=== PATIENT | female | born 1990 | race Caucasian/White ===

== ENCOUNTER 2017-09-04 06:19 | Inpatient (IN) | payer OTHER ==
[2017-09-04] MEDS ORDERED: NACL 0.9% 3 ML SYG IV (07:00)
[2017-09-04] MEDS ORDERED: BISACODYL (EC) 5 MG TAB PO (07:00)
[2017-09-04] MEDS ORDERED: ACETAMINOPHEN 325 MG TAB PO (07:00)
[2017-09-04] MEDS ORDERED: DOCUSATE SODIUM 100 MG CAP PO (07:00)
[2017-09-04 08:30] LABS: ADD MAN DIFF? NO
[2017-09-04 08:34] LABS: BASOPHIL # 0.1 10^3/ul (0.0-0.1); BASOPHILS % 0.6 % (0.0-2.0); EOSINOPHILS # 0.4 10^3/ul (0.0-0.5); EOSINOPHILS % 4.4 % (0.0-7.0); HEMATOCRIT 36.7 % (37.0-47.0); HEMOGLOBIN 12.5 g/dl (12.0-16.0); LYMPHOCYTES # 2.9 10^3/ul (0.8-2.9); LYMPHOCYTES % 32.1 % (15.0-51.0); MEAN CORPUSCULAR HEMOGLOBIN 29.9 pg (29.0-33.0); MEAN CORPUSCULAR HGB CONC 34.1 g/dl (32.0-37.0); MEAN CORPUSCULAR VOLUME 87.8 fl (82.0-101.0); MEAN PLATELET VOLUME 11.4 fl (7.4-10.4); MONOCYTE # 0.4 10^3/ul (0.3-0.9); MONOCYTES % 4.9 % (0.0-11.0); NEUTROPHIL # 5.2 10^3/ul (1.6-7.5); NEUTROPHILS % 57.8 % (39.0-77.0); PLATELET COUNT 221 10^3/UL (140-415); RED BLOOD COUNT 4.18 10^6/ul (4.20-5.40); RED CELL DISTRIBUTION WIDTH 12.1 % (11.5-14.5)
[2017-09-04 09:13] LABS: ALANINE AMINOTRANSFERASE 26 IU/L (13-69); ALBUMIN 3.4 g/dl (3.3-4.9); ALBUMIN/GLOBULIN RATIO 1.03; ALKALINE PHOSPHATASE 92 IU/L (42-121); ANION GAP 15 (8-16); ASPARTATE AMINO TRANSFERASE 27 IU/L (15-46); BILIRUBIN,INDIRECT 0.1 mg/dl (0-1.1); BILIRUBIN,TOTAL 0.1 mg/dl (0.2-1.3); BLOOD UREA NITROGEN 9 mg/dl (7-20); CALCIUM 8.5 mg/dl (8.4-10.2); CARBON DIOXIDE 26 mmol/L (21-31); CHLORIDE 108 mmol/L (97-110); CHOL/HDL RATIO 3.3 RATIO; CHOLESTEROL 151 mg/dl (100-200); CREATININE 0.67 mg/dl (0.44-1.00); GLUCOSE 92 mg/dl (70-220); HDL CHOLESTEROL 45 mg/dl (33-83); LDL CHOLESTEROL,CALCULATED 83 mg/dl; POTASSIUM 4.7 mmol/L (3.5-5.1); SODIUM 144 mmol/L (135-144); TOTAL PROTEIN 6.7 g/dl (6.1-8.1); TRIGLYCERIDES 117 mg/dl (0-149)
[2017-09-04 09:42] LABS: HEMOGLOBIN A1C 4.9 % (0-5.9)
[2017-09-04] MEDS: SOD CHLORIDE 0.9% 1,000 ML IV ×3 (09:46→19:13)
[2017-09-04 10:18] LABS: FREE T4 (FREE THYROXINE) 1.06 ng/dl (0.79-2.35)
[2017-09-04 10:52] LABS: AMYLASE 187 U/L (11-123)
[2017-09-04 10:52] LABS: LIPASE 403 U/L (23-300)
[2017-09-05] MEDS: SOD CHLORIDE 0.9% 1,000 ML IV ×5 (01:56→22:50)
[2017-09-05 06:02] LABS: ADD MAN DIFF? NO
[2017-09-05 06:14] LABS: BASOPHILS % 0.5 % (0.0-2.0); EOSINOPHILS # 0.4 10^3/ul (0.0-0.5); EOSINOPHILS % 4.5 % (0.0-7.0); HEMATOCRIT 34.9 % (37.0-47.0); HEMOGLOBIN 11.6 g/dl (12.0-16.0); LYMPHOCYTES # 3.2 10^3/ul (0.8-2.9); LYMPHOCYTES % 38.7 % (15.0-51.0); MEAN CORPUSCULAR HEMOGLOBIN 29.3 pg (29.0-33.0); MEAN CORPUSCULAR HGB CONC 33.2 g/dl (32.0-37.0); MEAN CORPUSCULAR VOLUME 88.1 fl (82.0-101.0); MEAN PLATELET VOLUME 11.8 fl (7.4-10.4); MONOCYTE # 0.4 10^3/ul (0.3-0.9); MONOCYTES % 4.7 % (0.0-11.0); NEUTROPHIL # 4.3 10^3/ul (1.6-7.5); NEUTROPHILS % 51.1 % (39.0-77.0); PLATELET COUNT 186 10^3/UL (140-415); RED BLOOD COUNT 3.96 10^6/ul (4.20-5.40); RED CELL DISTRIBUTION WIDTH 12.3 % (11.5-14.5)
[2017-09-05 06:14] LABS: WHITE BLOOD COUNT 8.4 10^3/ul (4.8-10.8)
[2017-09-05 06:43] LABS: MAGNESIUM 1.8 mg/dl (1.7-2.5)
[2017-09-05 06:43] LABS: PHOSPHORUS 3.2 mg/dl (2.5-4.9)
[2017-09-05 06:48] LABS: ALANINE AMINOTRANSFERASE 25 IU/L (13-69); ALBUMIN/GLOBULIN RATIO 1.03; ALKALINE PHOSPHATASE 68 IU/L (42-121); AMYLASE 65 U/L (11-123); ANION GAP 10 (8-16); ASPARTATE AMINO TRANSFERASE 17 IU/L (15-46); BILIRUBIN,INDIRECT 0.3 mg/dl (0-1.1); BILIRUBIN,TOTAL 0.3 mg/dl (0.2-1.3); BLOOD UREA NITROGEN 7 mg/dl (7-20); CARBON DIOXIDE 27 mmol/L (21-31); CHLORIDE 110 mmol/L (97-110); CREATININE 0.69 mg/dl (0.44-1.00); GLUCOSE 74 mg/dl (70-220); LIPASE 24 U/L (23-300); POTASSIUM 4.2 mmol/L (3.5-5.1); SODIUM 143 mmol/L (135-144); TOTAL PROTEIN 5.9 g/dl (6.1-8.1)
[2017-09-05 22:58] LABS: INR 1.03; PROTIME 13.6 Sec (11.9-14.9); PT RATIO 1.1
[2017-09-06] MEDS: BUPIVACAINE 0.25%/EPI (SDV) 30 ML INJ INJ
[2017-09-06] MEDS: SOD CHLORIDE 0.9% 1,000 ML IV ×5 (03:36→21:55)
[2017-09-06 05:52] LABS: ADD MAN DIFF? NO
[2017-09-06 06:00] LABS: BASOPHILS % 0.4 % (0.0-2.0); EOSINOPHILS # 0.4 10^3/ul (0.0-0.5); EOSINOPHILS % 4.4 % (0.0-7.0); HEMATOCRIT 34.5 % (37.0-47.0); HEMOGLOBIN 11.8 g/dl (12.0-16.0); LYMPHOCYTES # 3.1 10^3/ul (0.8-2.9); LYMPHOCYTES % 32.9 % (15.0-51.0); MEAN CORPUSCULAR HEMOGLOBIN 29.6 pg (29.0-33.0); MEAN CORPUSCULAR HGB CONC 34.2 g/dl (32.0-37.0); MEAN CORPUSCULAR VOLUME 86.7 fl (82.0-101.0); MEAN PLATELET VOLUME 11.5 fl (7.4-10.4); MONOCYTE # 0.5 10^3/ul (0.3-0.9); MONOCYTES % 5.6 % (0.0-11.0); NEUTROPHIL # 5.3 10^3/ul (1.6-7.5); NEUTROPHILS % 56.4 % (39.0-77.0); PLATELET COUNT 195 10^3/UL (140-415); RED BLOOD COUNT 3.98 10^6/ul (4.20-5.40)
[2017-09-06 06:00] LABS: WHITE BLOOD COUNT 9.3 10^3/ul (4.8-10.8)
[2017-09-06 06:21] LABS: MAGNESIUM 1.8 mg/dl (1.7-2.5)
[2017-09-06 06:21] LABS: PHOSPHORUS 3.7 mg/dl (2.5-4.9)
[2017-09-06 06:31] LABS: ALANINE AMINOTRANSFERASE 22 IU/L (13-69); ALBUMIN 3.3 g/dl (3.3-4.9); ALKALINE PHOSPHATASE 78 IU/L (42-121); AMYLASE 66 U/L (11-123); ANION GAP 13 (8-16); ASPARTATE AMINO TRANSFERASE 19 IU/L (15-46); BILIRUBIN,INDIRECT 0.2 mg/dl (0-1.1); BILIRUBIN,TOTAL 0.2 mg/dl (0.2-1.3); BLOOD UREA NITROGEN 7 mg/dl (7-20); CARBON DIOXIDE 25 mmol/L (21-31); CHLORIDE 110 mmol/L (97-110); CREATININE 0.66 mg/dl (0.44-1.00); GLUCOSE 90 mg/dl (70-220); LIPASE 49 U/L (23-300); POTASSIUM 4.4 mmol/L (3.5-5.1); SODIUM 144 mmol/L (135-144); TOTAL PROTEIN 6.3 g/dl (6.1-8.1)
[2017-09-06] MEDS ORDERED: DEXAMETHASONE 4 MG/ML 1 ML INJ ×2 (07:00→11:56)
[2017-09-06] MEDS ORDERED: FAMOTIDINE 20 MG INJ (07:00)
[2017-09-06] MEDS ORDERED: ACETAMINOPHEN 1000 MG/100 ML IVPB (07:00)
[2017-09-06] MEDS ORDERED: LIDOCAINE 1% (MPF) 30 ML INJ (09:27)
[2017-09-06] MEDS ORDERED: ROCURONIUM 50 MG INJ (10:57)
[2017-09-06] MEDS ORDERED: LIDOCAINE 1% (MDV) 20 ML INJ (10:57)
[2017-09-06] MEDS ORDERED: MIDAZOLAM 1 MG/ML 2 ML INJ (10:57)
[2017-09-06] MEDS ORDERED: PROPOFOL 20 ML (10:57)
[2017-09-06] MEDS ORDERED: ROPIVACAINE 0.2% 20 ML VIAL (11:00)
[2017-09-06] MEDS ORDERED: CEFAZOLIN 1 GM INJ (11:11)
[2017-09-06] MEDS ORDERED: metroNIDAZOLE 500 MG/NS (PMX) 100 ML IVPB (11:11)
[2017-09-06] MEDS ORDERED: SUGAMMADEX SODIUM 200 MG/2 ML VIAL IV (12:11)
[2017-09-06] MEDS ORDERED: METOCLOPRAMIDE 10 MG INJ (12:22)
[2017-09-06] MEDS ORDERED: HYDROmorphONE (0.2 MG/ML) 10ML SYG IV ×2 (12:26→12:30)
[2017-09-06] MEDS ORDERED: MEPERIDINE 25 MG INJ IV (12:30)
[2017-09-06] MEDS ORDERED: HYDROCODONE/APAP (5/325) TAB PO (12:30)
[2017-09-06] MEDS ORDERED: morphine 2 MG INJ IV (12:30)
[2017-09-06] MEDS: HYDROmorphONE (0.2 MG/ML) 10ML SYG IV ×3 (12:35→12:53)
[2017-09-06] MEDS: METOCLOPRAMIDE 10 MG INJ IV (12:53)
[2017-09-06] MEDS ORDERED: morphine LIQ (10 MG/5 ML) CUP PO (14:30)
[2017-09-06] MEDS: HYDROmorphONE 0.5 MG/0.5 ML SYG IV ×2 (14:45→21:56)
[2017-09-06] MEDS: ONDANSETRON 4 MG INJ IV ×2 (14:55→21:55)
[2017-09-06] MEDS: HYDROCODONE/APAP (5/325) TAB PO (19:39)
[2017-09-07] MEDS: HYDROmorphONE 0.5 MG/0.5 ML SYG IV ×3 (01:53→10:48)
[2017-09-07] MEDS: SOD CHLORIDE 0.9% 1,000 ML IV (04:49)
== END 2017-09-07 11:45 | disposition home or self-care (01) | DRG 417 ==
LOC: MS2 06:19
PROVIDERS: Family Medicine
PROC: 0FT44ZZ Resection of Gallbladder, Percutaneous Endoscopic Approach (ICD-10-PCS; principal; 2017-09-06 10:59)
DX: K80.70 Calculus of gallbladder and bile duct without cholecystitis without obstruction (principal); K85.10 Biliary acute pancreatitis without necrosis or infection; E66.9 Obesity, unspecified; E88.09 Other disorders of plasma-protein metabolism, not elsewhere classified; R07.9 Chest pain, unspecified; Z68.27 Body mass index [BMI] 27.0-27.9, adult
CPT/HCPCS: 74181; 80053; 80061; 82150; 83036; 83690; 83735; 84100; 84439; 84443; 84703; 85025; 85610; 87086; 88304